=== PATIENT | male | born 1975 | race African-American/Black ===

== ENCOUNTER 2016-07-17 13:36 | Emergency (ER) | payer OTHER ==
[2016-07-17 14:11] VITALS: BP 137/94
--- NOTE | 2016-07-17 14:13 | ER Document Report ---
ED Medical Screen (RME) - General Stated Complaint: LACERATION TO LEFT HAND Notes: yesterday, stabbed his left hand on accident when he was demolishing a house, was hit by metal ceiling frame tetanus 2.5-3 years ago no evidence of bleeding, epidermis involved, no evidence of fat, muscle involvement I have greeted and performed a rapid initial assessment of this patient. A comprehensive ED assessment and evaluation of the patient, analysis of test results and completion of the medical decision making process will be conducted by additional ED providers. - Related Data Allergies/Adverse Reactions: Sulfa (Sulfonamide Antibiotics) Allergy (Verified 07/17/16 14:10)
--- NOTE | 2016-07-17 15:04 | ER Document Report ---
[id number] TRAVEL OUTSIDE OF THE [place] IN LAST 30 DAYS: No - HPI Patient complains to provider of: Puncture wound Occurred: Just prior to arrival Onset/Duration: Sudden Quality of pain: Throbbing Context: Work related - General Chief Complaint: Puncture Wound Stated Complaint: LACERATION TO LEFT HAND Notes: Patient is a 40-year-old male presenting to the emergency department after he punctured his left hand with ceiling framing while at work. Patient states that he works in [employer], and his last tetanus shot was approximately 3 years ago. Patient is allergic to sulfa. Patient states that it is extremely painful to move his hand. Patient has no other complaints at this time. (CLARK OCHOA) - Related Data Allergies/Adverse Reactions: Sulfa (Sulfonamide Antibiotics) Allergy (Verified 07/17/16 14:10) Past Medical History - General Information source: Patient, Parent - Social History Smoking Status: Never Smoker Chew tobacco use (# tins/day): No Frequency of alcohol use: None Drug Abuse: None Occupation: [employer] Family History: Reviewed & Not Pertinent Patient has suicidal ideation: No Patient has homicidal ideation: No Renal/ Medical History: Denies: Hx Peritoneal Dialysis Review of Systems - Review of Systems Constitutional: No symptoms reported EENT: No symptoms reported Cardiovascular: No symptoms reported Respiratory: No symptoms reported Gastrointestinal: No symptoms reported Genitourinary: No symptoms reported Male Genitourinary: No symptoms reported Musculoskeletal: See HPI, Other - Left hand pain Skin: No symptoms reported Hematologic/Lymphatic: No symptoms reported Neurological/Psychological: No symptoms reported -: Yes All other systems reviewed and negative Physical Exam - Vital signs Vitals: Temp Pulse BP Pulse Ox 98.0 F 83 137/94 H 99 07/17/16 14:07 07/17/16 14:07 07/17/16 14:07 07/17/16 14:07 (CLARK OCHOA) (BLOSSOM BHAT) - Notes Notes: GENERAL: Alert, interacts well. No acute distress. HEAD: Normocephalic, atraumatic. EYES: Pupils equal, round, and reactive to light. Extraocular movements intact. ENT: Oral mucosa moist. NECK: Full range of motion. Supple. HEART: Regular rate and rhythm. ABDOMEN: Soft, non-tender. Non-distended. EXTREMITIES: Moves all 4 extremities spontaneously. Superficial 3 cm laceration to the lateral aspect of the left palm. Full range of motion with pain of all digits. Swelling of thenar eminence. NEUROLOGICAL: Alert and oriented x3. Normal speech. PSYCH: Normal affect, normal mood. SKIN: Warm, dry, normal turgor. No rashes or lesions noted. (CLARK OCHOA) Course - Re-evaluation Re-evalutation: 07/17/16 15:06 I personally performed the services described in the documentation, reviewed and edited the documentation which was dictated to my scribe in my presence, and it accurately records my words and actions. Patient presents emergency left hand injury. 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 He has a very superficial laceration to the hypothenar eminence of the left hand but believes it went much deeper. There is no active bleeding no signs of infection no concerns for foreign body the wound is very superficial was closed with glue however he has tenderness into the muscle belly there is no associated weakness numbness tingling vascular or neurological deficits but 8 described to him in detail that this is a puncture wound and is at high risk for infection. Start him on antibiotics which he states he can afford 24 hour follow-up and recheck at for wound care and reevaluation and further assessment and evaluation. We talked about all the risk factors for hand injuries and potential for infection. He promises he will keep his appointment tomorrow I told if he can't get up on a come back to the emergency from further assessment and evaluation and he is up-to-date on a stat (BLOSSOM BHAT) - Vital Signs Vital signs: Temp Pulse Resp BP Pulse Ox 98.0 F 83 137/94 H 99 07/17/16 14:07 07/17/16 14:07 07/17/16 14:07 07/17/16 14:07 (CLARK OCHOA) (BLOSSOM BHAT) Discharge - Discharge Clinical Impression: Puncture wound Condition: Stable Disposition: HOME, SELF-CARE Additional Instructions: Puncture Wound You have a puncture wound. Because these wounds often penetrate deeply beneath the skin, you must observe them carefully for complications. The wound has been examined for retained foreign material and for damage to tendons and nerves. The area should be rested and elevated for 24 hours. Then you can use the injured part -- if moving it is painfree. Punctures of the hand or foot may require splinting or crutches. The dressing should be changed daily until the wound is healed. Watch for signs of infection. Call the doctor immediately if redness, swelling, warmth, increasing pain, or wound drainage occur. If you develop numbness, persistent bleeding, or inability to move the injured area, please return for prompt re-evaluation. Follow-up for wound recheck in 12-24 hours with employee health if you're unable to get an appointment to be seen in the next 24 hours as we are concerned about infection return immediately to the emergency department return immediately for increasing worsening or new symptoms Prescriptions: Cephalexin Monohydrate [Keflex 500 mg Capsule] 500 mg PO QID #28 capsule Hydrocodone/Acetaminophen [[place] 5-325 mg Tablet] 1 tab PO TID #15 tablet Forms: Return to Work Scribe Documentation - Scribe Written by Juan Ramon:: Clark Ochoa 07/17/2016 1504 acting as scribe for :: Pop
== END 2016-07-17 15:14 | disposition home or self-care (01) ==
LOC: ER 13:36
DX: S61.432A Puncture wound without foreign body of left hand, initial encounter (principal); W45.8XXA Other foreign body or object entering through skin, initial encounter; Y93.89 Activity, other specified; Y99.0 Civilian activity done for income or pay; Z88.2 Allergy status to sulfonamides
CPT/HCPCS: 99282